=== PATIENT | female | born 1950 | race Caucasian/White ===

== ENCOUNTER 2016-12-27 17:29 | Inpatient (IN) | payer BC, OTHER ==
[~2016-12-27] VITALS: Ht 167.6 cm; Wt 98.2 kg
[~2016-12-27 17:29] MED LIST: CELECOXIB200 MG PO; ENDOCET 5-3251 EACH PO; EXFORGE HCT 101 EAC2 PO; IRON325 M1 PO; LOVENOX40 MG/0.4 SC; VITAMIN D32000 UNI1 PO; VITAMIN D5000 UNI1 PO
[2016-12-27 17:52] VITALS: BP 126/69
[2016-12-28 05:26] VITALS: BP 128/66
[2016-12-28 06:50] LABS: HEMATOCRIT 24.4 % (36.0-46.0); MCH 29.8 PG (29.0-34.0); MCHC 34.8 G/DL (30.0-36.0); MCV 85.6 FL (83-99); MEAN PLAT.VOLUME 10.2 uM^3 (9.5-12.4); PLATELET COUNT 137 K/uL (156-360); RBC DIS.WIDTH-CV 13.5 % (11.8-14.6); RBC DIS.WIDTH-SD 42.6 % (39-53); RED BLOOD COUNT 2.85 M/uL (3.80-5.20); WHITE BLOOD COUNT 8.2 K/uL (4.1-10.2)
[2016-12-28 07:16] LABS: ALKALINE PHOSPHATASE 61 IU/L (3-129); ANION GAP 8 MEQ/L (2-14); CHLORIDE 99 MEQ/L (99-109); GFR ESTIMATE (CALCULATED) > 59 mL/min/; GLUCOSE 104 mg/dL (70-99); POTASSIUM 3.5 MEQ/L (3.7-5.4); SAMPLE HEMOLYSIS CHECK 0; SAMPLE ICTERIC CHECK 0; SAMPLE LIPEMIA CHECK 0; SODIUM 131 MEQ/L (136-147); TOTAL BILIRUBIN 1.1 MG/DL (0.0-1.0); UREA NITROGEN (BUN) 11 mg/dL (9-23)
[2016-12-28 16:32] VITALS: BP 112/58
[2016-12-29 04:47] VITALS: BP 137/77
[2016-12-29 07:25] LABS: HEMATOCRIT 28.1 % (36.0-46.0); MCH 30.4 PG (29.0-34.0); MCHC 34.5 G/DL (30.0-36.0); MCV 88.1 FL (83-99); MEAN PLAT.VOLUME 9.8 uM^3 (9.5-12.4); RBC DIS.WIDTH-CV 13.8 % (11.8-14.6); RBC DIS.WIDTH-SD 44.8 % (39-53); RED BLOOD COUNT 3.19 M/uL (3.80-5.20); WHITE BLOOD COUNT 7.8 K/uL (4.1-10.2)
[2016-12-29 07:26] LABS: PLATELET COUNT 203 K/uL (156-360)
[2016-12-29 07:41] LABS: ANION GAP 9 MEQ/L (2-14); CHLORIDE 99 MEQ/L (99-109); GFR ESTIMATE (CALCULATED) > 59 mL/min/; GLUCOSE 101 mg/dL (70-99); SAMPLE HEMOLYSIS CHECK 0; SAMPLE ICTERIC CHECK 0; SAMPLE LIPEMIA CHECK 0; SODIUM 133 MEQ/L (136-147); UREA NITROGEN (BUN) 12 mg/dL (9-23)
[2016-12-29 07:42] LABS: POTASSIUM 4.4 MEQ/L (3.7-5.4)
[2016-12-29 15:00] VITALS: BP 114/64
[2016-12-29 15:15] VITALS: BP 129/62
[2016-12-30 04:31] VITALS: BP 128/76
[2016-12-30 15:23] VITALS: BP 111/62
[2016-12-31 04:35] VITALS: BP 123/65
[2016-12-31 15:08] VITALS: BP 109/56
[2017-01-01 05:21] VITALS: BP 136/75
[2017-01-01 15:10] VITALS: BP 109/58
[2017-01-01] MEDS ORDERED: SODIUM CHLORIDE1 G1 PO (18:56)
[2017-01-01] MEDS ORDERED: SENNA PLUS TAB1 EACH PO (18:56)
[2017-01-01] MEDS ORDERED: K-DUR20 MEQ PO (18:56)
[2017-01-01] MEDS ORDERED: LIDOCAINE700 MG TD (18:56)
[2017-01-01] MEDS ORDERED: IRON325 M1 PO (18:56)
[2017-01-01] MEDS ORDERED: DOCUSATE SODIU100 MG PO (18:56)
[2017-01-01 20:13] LABS: HEMATOCRIT 26.9 % (36.0-46.0); MCH 30.4 PG (29.0-34.0); MCHC 34.2 G/DL (30.0-36.0); MCV 88.8 FL (83-99); MEAN PLAT.VOLUME 9.1 uM^3 (9.5-12.4); PLATELET COUNT 262 K/uL (156-360); RBC DIS.WIDTH-CV 14.4 % (11.8-14.6); RBC DIS.WIDTH-SD 46.6 % (39-53); RED BLOOD COUNT 3.03 M/uL (3.80-5.20); WHITE BLOOD COUNT 7.6 K/uL (4.1-10.2)
[2017-01-01 20:45] LABS: ANION GAP 10 MEQ/L (2-14); CHLORIDE 100 MEQ/L (99-109); GFR ESTIMATE (CALCULATED) > 59 mL/min/; GLUCOSE 101 mg/dL (70-99); POTASSIUM 4.2 MEQ/L (3.7-5.4); SAMPLE HEMOLYSIS CHECK 0; SAMPLE ICTERIC CHECK 0; SAMPLE LIPEMIA CHECK 0; SODIUM 133 MEQ/L (136-147); UREA NITROGEN (BUN) 17 mg/dL (9-23)
[2017-01-02 05:00] VITALS: BP 133/74
== END 2017-01-02 10:10 | DRG 560 ==
LOC: 3WEST 17:29
PROVIDERS: Physical Medicine & Rehabilitation Pain Medicine
PROC: F07M0ZZ Range of Motion and Joint Mobility Treatment of Musculoskeletal System - Whole Body (ICD-10-PCS; principal; 2016-12-27)
DX: Z47.1 Aftercare following joint replacement surgery (principal); R53.1 Weakness; Z96.651 Presence of right artificial knee joint; D62 Acute posthemorrhagic anemia; E87.1 Hypo-osmolality and hyponatremia; D69.6 Thrombocytopenia, unspecified; E78.00 Pure hypercholesterolemia, unspecified; E83.51 Hypocalcemia; E87.6 Hypokalemia; I10 Essential (primary) hypertension; G89.18 Other acute postprocedural pain; M17.12 Unilateral primary osteoarthritis, left knee; E77.8 Other disorders of glycoprotein metabolism; Z60.2 Problems related to living alone
CPT/HCPCS: 73564; 80048; 80053; 85027; 97110 GO; 97530 GP; J1650

== ENCOUNTER 2017-12-17 21:54 | Inpatient (IN) | payer BC, OTHER ==
[~2017-12-17] VITALS: Ht 167.6 cm; Wt 93.8 kg
[~2017-12-17 21:54] MED LIST changes: +DOCUSATE SODIU100 MG PO; +EXFORGE 10/31 TABLET PO; +K-DUR20 MEQ PO; +LIDOCAINE700 MG TD; +SENNA PLUS TAB1 EACH PO; +SODIUM CHLORIDE1 G1 PO; +VITAMIN E400 UNIT PO
[2017-12-18 12:58] VITALS: BP 132/70
[2017-12-18 17:37] LABS: HEMATOCRIT 29.5 % (36.0-46.0); MCH 30.1 PG (29.0-34.0); MCHC 34.2 G/DL (30.0-36.0); MCV 88.1 FL (83-99); PLATELET COUNT 157 K/uL (156-360); RBC DIS.WIDTH-CV 13.3 % (11.8-14.6); RBC DIS.WIDTH-SD 43.2 % (39-53); RED BLOOD COUNT 3.35 M/uL (3.80-5.20); WHITE BLOOD COUNT 5.3 K/uL (4.1-10.2)
[2017-12-18 17:42] LABS: HEMOGLOBIN 10.1 G/DL (11.9-15.5)
[2017-12-18 19:30] VITALS: BP 132/70
[2017-12-19 00:03] VITALS: BP 116/68
[2017-12-19 04:03] VITALS: BP 121/76
[2017-12-19 06:06] LABS: HEMATOCRIT 33.3 % (36.0-46.0); HEMOGLOBIN 11.3 G/DL (11.9-15.5); MCV 87.4 FL (83-99)
[2017-12-19 06:24] LABS: CHLORIDE 97 MEQ/L (99-109); CREATININE 0.8 MG/DL (0.6-1.3); GFR ESTIMATE (CALCULATED) > 59 mL/min/; GLUCOSE 159 mg/dL (70-99); POTASSIUM 3.8 MEQ/L (3.7-5.4); SODIUM 131 MEQ/L (136-147); UREA NITROGEN (BUN) 13 mg/dL (9-23)
[2017-12-19 08:30] VITALS: BP 125/69
[2017-12-19] MEDS ORDERED: CELECOXIB200 MG PO (08:34)
[2017-12-19] MEDS ORDERED: LOVENOX40 MG/0.4 SC (08:34)
[2017-12-19] MEDS ORDERED: DOCUSATE SODIU100 MG PO (08:34)
[2017-12-19] MEDS ORDERED: OXYCODONE HCL5 MG PO (08:34)
[2017-12-19 11:49] VITALS: BP 122/59
[2017-12-19 15:41] VITALS: BP 122/61
[2017-12-19 20:16] VITALS: BP 104/57
[2017-12-20 00:30] VITALS: BP 116/62
[2017-12-20 04:30] VITALS: BP 125/68
[2017-12-20 04:46] LABS: HEMATOCRIT 27.1 % (36.0-46.0); HEMOGLOBIN 9.6 G/DL (11.9-15.5)
[2017-12-20 08:07] VITALS: BP 116/56
[2017-12-20 11:54] VITALS: BP 111/55
[2017-12-20 15:32] VITALS: BP 121/58
== END 2017-12-20 16:30 | DRG 470 ==
LOC: ENRESERV 21:54 → CANRESERV 21:54 → 3WEST 12-18 12:31 → 2SOUTH 12-18 12:31 → ENRESERV 12-18 15:08 → 2SOUTH 12-18 15:56 → 3WEST 12-18 19:43
PROVIDERS: Orthopaedic Surgery
PROC: 0SRD0J9 Replacement of Left Knee Joint with Synthetic Substitute, Cemented, Open Approach (ICD-10-PCS; principal; 2017-12-18)
DX: M17.12 Unilateral primary osteoarthritis, left knee (principal); D62 Acute posthemorrhagic anemia; Z96.651 Presence of right artificial knee joint; M81.0 Age-related osteoporosis without current pathological fracture; I10 Essential (primary) hypertension; H93.19 Tinnitus, unspecified ear
CPT/HCPCS: 36415; 73560; 80048; 85014; 85018; 85027; 86850; 86900; 86901; 87641; C1713; J0690; J1100; J1650; J2250; J2405; J2795; J3010; J7050